=== PATIENT | male | born 1940 | race Caucasian/White ===

== ENCOUNTER 2017-04-05 18:03 | Emergency (ER) | payer MEDICARE ==
[2017-04-05 18:14] VITALS: BP 161/97
--- NOTE | 2017-04-05 19:05 | UC ---
Marcello Martinez Aidan, scribed for Radha Walden MD on 04/05/17 at 1855 . Hypertension HPI - HPI Summary HPI Summary: 76 y/o male presents to the Urgent Care with a complaint of acute, moderate episodes of HTN that occurred yesterday and today. Yesterday, his blood pressure was 150/83. This morning, while at Dr. Sabillon office, his blood pressure was 155/91. Later, he checked his blood pressure again and it was 207/ 97. On arrival, his blood pressure was 161/97. According to the patient, he typically runs around 120/75. Pt denies any unexplained WATT, CP, palpitations, hematuria, dark colored urine, flashing lights, feeling as though curtains are coming down over the eyes, or any other symptoms. He does mention, however, feeling a pulse in his head when his blood pressure is high. Additionally, he has a tingling in the back of his shoulder that has persisted intermittently for roughly 1.5 months. 3 days ago, he returned from travel. Pt takes vitamin D3 , iron, vitamin b12, vitamin E, a diuretic called water out, and fish oil. No Hx of CHF or COPD. - History of Current Complaint Chief Complaint: UCGeneralIllness Stated Complaint: HIGH BLOOD PRESSURE Time Seen by Provider: 04/05/17 18:28 Hx Obtained From: Patient Onset/Duration: Sudden Onset, Lasting Hours, Still Present Timing: Intermittent Episodes Lasting: Aggravating Factor(s): Nothing - unknown Alleviating Factor(s): Nothing - unknown Associated Signs And Symptoms: Negative: Negative - feeling a pulse in the head with blood pressure is high, tingling sensation in the back of his shoulder Current Medications: Diuretic - "water-out" - Allergies/Home Medications Allergies/Adverse Reactions: Allergies Allergy/AdvReac Type Severity Reaction Status Date / Time Sulfa Antibiotics Allergy Rash Verified 04/05/17 18:14 Home Medications: Home Medications Chlorthalidone TAB* [Hygroton TAB*] 25 mg PO DAILY 04/05/17 [History Confirmed 04/05/17] PMH/Surg Hx/FS Hx/Imm Hx - Surgical History Surgical History: Yes Surgery Procedure, Year, and Place: Appendectomy, left shoulder rotator cuff - Family History Known Family History: Positive: Hypertension - Social History Occupation: Retired Lives: With Family Alcohol Use: Weekly Alcohol Amount: a beer or wine almost every day Substance Use Type: None Smoking Status (MU): Never Smoked Tobacco Review of Systems Constitutional: Negative Skin: Negative Eyes: Negative ENT: Negative Respiratory: Negative Cardiovascular: Other - HTN, pressure in his head when he has high blood pressure Gastrointestinal: Negative Genitourinary: Negative Motor: Negative Neurovascular: Negative Musculoskeletal: Negative Neurological: Other - tingling sensation in the back of the shoulder Psychological: Negative All Other Systems Reviewed And Are Negative: Yes Physical Exam Triage Information Reviewed: Yes Appearance: Well-Appearing, Well-Nourished Vital Signs: Initial Vital Signs Temp 98.1 F 04/05/17 18:07 Pulse 65 04/05/17 18:07 Resp 16 04/05/17 18:07 BP 161/97 04/05/17 18:07 Pulse Ox 100 04/05/17 18:07 Vital Signs Reviewed: Yes Eye Exam: Normal ENT Exam: Normal Neck exam: Normal Neck: Positive: No Lymphadenopathy Respiratory Exam: Normal, Other - no dyspnea, no tachypnea Respiratory: Positive: Chest non-tender, Lungs clear, Normal breath sounds, No respiratory distress, No accessory muscle use Cardiovascular Exam: Normal, Other - good general skin color, heart rate regular , good capillary refill Cardiovascular: Positive: RRR, No Murmur, Pulses Normal, Brisk Capillary Refill Abdominal Exam: Normal Abdomen Description: Positive: Nontender Musculoskeletal Exam: Normal - gait steady. No leg edema. + varicosities. Distal ext's warm to touch. Moves all 4 ext's grossly equally. Neurological Exam: Normal, Other - nonfocal, grossly intact Facial expressions grossly symmetric. MMM. PERRLA EOMI, no appreciable nystagmus. Nondilated fundoscopic exam grossly normal. TM's au nad. Trachea midline. ? midneck nonblanching redness (pointed out by pt), not c/w cellulitis. No appreciable gross mass or deviation. Psychological Exam: Normal, Other - conversing easily and appropriately Psychological: Positive: Age Appropriate Behavior Skin Exam: Normal - visible or reported rash nondiaphoretic, Other - visible or reported rash nondiaphoretic Hypertension Course/Dx - Course Course Of Treatment: No new problems in CCC. Plans to f/u on Saturday with PCP, Dr. Cummins. Will seek medical attention for worse or new problems. Not taking decongestants or caffeine, and no plans to start. Blood tests ordered: cbc, cmp, magnesium, tsh. Questions answered to the best of my ability. - Differential Dx/Diagnosis Provider Diagnoses: Hypertension uncontrolled Discharge - Discharge Plan Condition: Stable Disposition: HOME Patient Education Materials: Hypertension (ED) Referrals: Alberto Cummins MD [Primary Care Provider] - Amos Hackett MD [Medical Doctor] - Additional Instructions: Your blood pressure today was 161/97, which is hypertensive. *Recommended follow up with your primary care provider within 4 weeks to examine blood pressure.* Follow up with Dr. Cummins as scheduled on Saturday. Seek medical attention in the meantime for worse or new problems. Blood tests today: cbc cmp tsh magnesium level The documentation as recorded by the Marcello oliveira Aidan accurately reflects the service I personally performed and the decisions made by me, Radha Walden MD.
[2017-04-06 14:11] LABS: Hematocrit 42 % (42-52); Hemoglobin 14.1 g/dl (14.0-18.0); Mean Corpuscular HGB Conc 34 g/dl (31-36); Mean Corpuscular Hemoglobin 31 pg (27-31); Mean Corpuscular Volume 92 fL (80-94); Mean Platelet Volume 11 um3 (7.4-10.4); Red Blood Count 4.56 10^6/ul (4.0-5.4); Red Cell Distribution Width 14 % (10.5-15); White Blood Count 7.7 10^3/ul (3.5-10.8)
[2017-04-06 14:22] LABS: Albumin 4.5 g/dL (3.2-5.2); BUN/Creatinine Ratio 15.6 (8-20); Calcium 9.1 mg/dL (8.6-10.3); EGFR African American 98.2 (>60); EGFR Non-African American 76.4 (>60); Globulin 2.1 g/dL (2-4); Magnesium 2.2 mg/dL (1.9-2.7); Potassium 4.1 mmol/L (3.5-5.0); Total Bilirubin 0.8 mg/dL (0.2-1.0); Total Protein 6.6 g/dL (6.4-8.9)
[2017-04-06 14:30] LABS: TSH (Thyroid Stimulating Horm) 4.56 mcIU/mL (0.34-5.60)
== END 2017-04-05 19:15 | disposition home or self-care (01) ==
LOC: UCEAST 18:03
DX: I10 Essential (primary) hypertension (principal)
CPT/HCPCS: 36415; 80053; 83735; 84443; 85025; 99211; G0463

== ENCOUNTER 2018-02-26 10:27 | Emergency (ER) | payer MEDICARE ==
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
[2018-02-26 14:49] VITALS: BP 151/76
== END 2018-02-26 14:44 | disposition home or self-care (01) ==
LOC: ED 10:27
DX: S02.40FA Zygomatic fracture, left side, initial encounter for closed fracture (principal); S02.82XA Fracture of other specified skull and facial bones, left side, initial encounter for closed fracture; S02.40DA Maxillary fracture, left side, initial encounter for closed fracture; S90.512A Abrasion, left ankle, initial encounter; V89.9XXA Person injured in unspecified vehicle accident, initial encounter; Y92.9 Unspecified place or not applicable
CPT/HCPCS: 70450; 70486; 72125; 99282